=== PATIENT | male | born 1980 | race Caucasian/White ===

== ENCOUNTER 2024-05-17 04:17 | Day surgery (SDC) | payer OTHER ==
[2024-05-16 16:19] VITALS: BMI 40.2
[2024-05-17] MEDS ORDERED: LIDOCAINE 1%/EPI 1:100000 (20 ML MULTI DOSE VIAL) ONE (07:15)
[2024-05-17] MEDS ORDERED: PROPOFOL 20 ML ONE ×2 (07:43→08:47)
[2024-05-17] MEDS ORDERED: MIDAZOLAM HCL 2 MG/2 ML SINGLE DOSE VIAL ONE (07:43)
[2024-05-17] MEDS ORDERED: SUCCINYLCHOLINE CHLORIDE 200 MG/10 ML SYRINGE ONE (07:43)
[2024-05-17] MEDS ORDERED: ROCURONIUM BROMIDE 50 MG/5 ML SYRINGE ONE (07:43)
[2024-05-17] MEDS: ceFAZolin SODIUM 1 GM VIAL IVPB ONE ×2 (08:28)
[2024-05-17] MEDS: LIDOCAINE 1%/EPI 1:100000 (20 ML MULTI DOSE VIAL) IJ ONE ×2 (08:39)
[2024-05-17] MEDS ORDERED: HYDROmorphone HCl 2 MG/ML VIAL ONE (09:16)
[2024-05-17] MEDS: BACITRACIN ZINC 15 GM TUBE TOPICAL OINTMENT TP ONE (09:30)
[2024-05-17] MEDS ORDERED: ONDANSETRON 4 MG/2 ML VIAL IVPUSH PRN (09:40)
[2024-05-17] MEDS ORDERED: oxyCODONE HCL 5 MG TABLET PO PRN (09:40)
[2024-05-17] MEDS ORDERED: LACTATED RINGERS SOLUTION 1,000 ML IV SCH (09:45)
[2024-05-17] MEDS: ACETAMINOPHEN 1000 MG/100 ML BAG IVPB ONE (09:55)
[2024-05-17 11:21] VITALS: RESP 18
[2024-05-17 12:11] VITALS: BP 115/69; PULSE 66; TEMP 98.2
== END 2024-05-17 11:55 | disposition home or self-care (01) ==
LOC: JASU-SURG 04:17
PROVIDERS: ATTEND Otolaryngology
PROC: 09SM0ZZ Reposition Nasal Septum, Open Approach (ICD-10-PCS; principal; 2024-05-17 08:00)
DX: J34.2 Deviated nasal septum (principal); R09.81 Nasal congestion
CPT/HCPCS: 88304-TC; 94760; J0131